=== PATIENT | male | born 1995 | race Caucasian/White ===

== ENCOUNTER → 2024-02-13 10:32 | Outpatient (BNVA) | payer BC, SELFPAY | PROVIDERS: Family Provider Family Medicine; PCP Nurse Practitioner Family; Visit Provider Nurse Practitioner Family | DX: Z79.899 Other long term (current) drug therapy (principal); Z13.6 Encounter for screening for cardiovascular disorders; L03.119 Cellulitis of unspecified part of limb; Z87.898 Personal history of other specified conditions | CPT/HCPCS: 80053; 80061; 81003; 82306; 83036; 83880; 84439; 84443; 85025; 85651; 86140; 87086 ==

== ENCOUNTER → 2024-08-05 11:46 | Outpatient (BNVA) | payer BC, SELFPAY | PROVIDERS: Family Provider Family Medicine; PCP Nurse Practitioner Family; Visit Provider Nurse Practitioner Family | DX: Z79.899 Other long term (current) drug therapy (principal) | CPT/HCPCS: 80053; 82306; 85025 ==